=== PATIENT | male | born 1990 | race Caucasian/White ===

== ENCOUNTER 2023-01-03 13:12 | Emergency (ER) | payer SELFPAY ==
[2023-01-03] MEDS ORDERED: LIDOCAINE 1% INJ 20 ML VIAL INJ STA (13:23)
[2023-01-03] MEDS ORDERED: TETANUS,DIPTH,PERTUSS P/F (BOOSTRIX) 0.5 ML VIAL IM ONE (13:30)
[2023-01-03] MEDS ORDERED: cefTRIAXone 1,000 MG VIAL IM STA (13:31)
--- NOTE | 2023-01-03 13:38 | ED Upper Extremity ---
General Chief Complaint: Upper Extremity Stated Complaint: RIGHT HAND INJURY Nursing Triage Note: Patient has presented to ER with laceration to right knuckle from a razor blade. Source: patient History of Present Illness Date Seen by Provider: Jan 03, 2023 Time Seen by Provider: 13:18 Initial Comments 32-year-old male presenting with complaints of laceration to the right hand. He was using a straight razor trying to work with a normal can. The blade slipped and cut into his hand. He believes his last tetanus shot was 5 to 6 years ago. He denies any allergies to medications. He states he does not take any regular medicines every day. He does not have any numbness or tingling and has intact movement. Onset: just prior to arrival Severity: mild Pain/Injury Location: right 3rd finger Method of Injury: incised Modifying Factors: Worse With Movement Allergies and Home Medications Allergies Coded Allergies: No Known Drug Allergies (Unverified , 01/03/23) Patient Home Medication List Home Medication List Reviewed: Yes Amoxicillin/Potassium Clav (Amox Tr-K Clv 875-125 mg Tab) 875 Mg-125 Mg Tablet, 1 EACH PO BID Prescribed by: DENISE DIAS on 01/03/23 1427 Review of Systems Constitutional: No chills, No fever EENTM: no symptoms reported Respiratory: no symptoms reported Cardiovascular: no symptoms reported Gastrointestinal: no symptoms reported Genitourinary: no symptoms reported Musculoskeletal: see HPI Skin: see HPI Psychiatric/Neurological: Denies Numbness, Denies Paresthesia Past Bdrspyq-Ngjsbp-Gailev Hx Patient Social History Tobacco Use?: No Use of E-Cig and/or Vaping dev: No Substance use?: No Pt feels they are or have been: Unable to obtain Physical Exam Vital Signs Vital Signs - First Documented 01/03/23 13:18 Temp 35.7 Pulse 88 Resp 94 B/P (MAP) 143/96 (112) Pulse Ox 95 O2 Delivery Room Air Capillary Refill : Height, Weight, BMI Height: '" Weight: lbs. oz. kg; BMI Method: General Appearance: WD/WN, no apparent distress Cardiovascular: normal peripheral pulses Wrist: Yes normal inspection, Yes non-tender, Yes no evidence of injury, Yes normal ROM Hand: normal ROM, Right, laceration (extensor surface of middle finger over the MCP joint. Tendon visible within wound but no obvious laceration of the tendon. Full ROM of the middle finger of right hand with intact extension even with each joint stabilized.) Neurologic/Tendon: normal sensation, normal motor functions, normal tendon functions Neurologic/Psychiatric: media monitor II-XII nml as tested, no motor/sensory deficits, alert, oriented x 3 Skin: normal color, warm/dry Procedures/Interventions Wound Location: Upper Extremities (Right hand over the extensor surface of the middle finger.) Wound Length (cm): 4.2 Wound's Depth, Shape: linear, sub Q, tendon Wound Explored: clean Irrigated w/ Saline (ccs): 500 Betadine Prep?: Yes Anesthesia: 1% Lidocaine Volume Anesthetic (ccs): 6 Suture: Ethlion Suture Size: 4-0 Number of Sutures: 8 Sterile Dressing Applied?: Yes Progress After obtaining verbal consent from the patient the wound was anesthetized with 1% plain lidocaine. A total of 6 mL of 1% plain lidocaine were infiltrated in the wound. Then using Betadine and sterile water a total of 500 mL were irrigated through the wound under pressure. Using 4-0 Ethilon a total of 8 simple interrupted stitches were placed to approximate the wound edges. Wound edges were well approximated without any acute complication during the procedure. Patient was counseled on follow-up and return precautions. We will give antibiotics here of Rocephin 1 g IM and sent a prescription for continued Augmentin 875 twice daily. Counseled to have stitches removed in 12 to 14 days. Be seen sooner if concerns for infection. Progress/Results/Core Measures Results/Orders My Orders Orders - DENISE DIAS MD Dipht,Pertuss(Acell),Tet Adult (Boostrix (01/03/23 13:30) Lidocaine 1% Inj 20 Ml (Xylocaine 1% Inj (01/03/23 13:23) Ceftriaxone (Rocephin) (01/03/23 13:31) Lidocaine 1% Inj 20 Ml (Xylocaine 1% Inj (01/03/23 13:45) Wound Dressing-Ed (01/03/23 13:31) Suture Set At Bedside (01/03/23 13:31) Medications Given in ED Current Medications Medications Dose Ordered Sig/Coleman Route Start Time Stop Time Status Last Admin Dose Admin Diphtheria/ Tetanus/Acell Pertussis 0.5 ml ONCE ONCE IM 01/03/23 13:30 01/03/23 13:31 DC 01/03/23 13:34 0.5 ML Lidocaine HCl 2.1 ml ONCE ONCE INJ 01/03/23 13:45 01/03/23 13:46 DC 01/03/23 13:47 2.1 ML Vital Signs/I&O 01/03/23 01/03/23 13:18 14:31 Temp 35.7 35.7 Pulse 88 88 Resp 94 94 B/P (MAP) 143/96 (112) 143/96 Pulse Ox 95 95 O2 Delivery Room Air Room Air Blood Pressure Mean: 112 Progress Progress Note : Progress Note Update tetanus booster as patient thought it had been 5 to 6 years since his last shot. X-rays were considered but since he did not have any force to cause a bony abnormality and there were no obvious foreign bodies will defer x-rays for now. I did call and discussed the patient with the on-call orthopedic doctor, Dr. Ronal Ann. He agreed with the antibiotics and covering the tendon but voiced that the patient would not have to follow-up with orthopedics unless he was having complications or concerns. Plan on having the stitches out in 12 to 14 days. Departure Impression Primary Impression: Laceration of middle finger of right hand without complication Qualified Codes: S61.212A - Laceration without foreign body of right middle finger without damage to nail, initial encounter Disposition: 01 HOME, SELF-CARE Condition: Stable Departure-Patient Inst. Decision time for Depature: 14:26 Referrals: NO,LOCAL PHYSICIAN (Family) Primary Care Physician RONAL ANN MD [facility] Patient Instructions: Wound Care ED, Laceration Repair With Stitches ED Add. Discharge Instructions: Keep wound clean and dry for the first 24 hours. After that you may wash with soap and water like normal but did not soak it. Keep a clean dry dressing on the wound whenever it might get dirty. If you are just at home without the chance of it getting dirty you could leave it open to air. Take the full course of antibiotics to help prevent infection. If you do notice increasing redness streaking up your hand increasing pain, pus draining from the wound then you should return or be seen immediately as you would need a surgeon to clean out the wound. You may try using acetaminophen and/or ibuprofen to help with pain. You could apply ice 10 to 15 minutes every few hours as needed to help with pain and swelling. Try to keep it elevated above heart level is much as possible to help with pain and swelling. All discharge instructions reviewed with patient and/or family. Voiced understanding. Scripts Amoxicillin/Potassium Clav (Amox Tr-K Clv 875-125 mg Tab) 875 Mg-125 Mg Tablet 1 EACH PO BID for laceration for 10 Days, #20 TAB 0 Refills Prov: DENISE DIAS MD 01/03/23 Work/School Note: Work Release Form Date Seen in the Emergency Department: Jan 03, 2023 Return to Work: Jan 18, 2023 Restrictions: Need Release from Doctor Other Restrictions Listed Below: Keep wound clean and covered if might get dirty. Restrictions: Stitches out in 12 to 14 days DENISE DIAS MD Jan 03, 2023 13:38
[2023-01-03] MEDS ORDERED: LIDOCAINE 1% INJ 20 ML VIAL INJ ONE (13:45)
[2023-01-03] MEDS ORDERED: AMOX1TAB12 PO (14:27)
[2023-01-03 14:31] VITALS: BP 143/96
== END 2023-01-03 14:31 | disposition home or self-care (01) ==
LOC: ER FS 13:14
DX: S61.212A Laceration without foreign body of right middle finger without damage to nail, initial encounter (principal); Z23 Encounter for immunization; W26.8XXA Contact with other sharp object(s), not elsewhere classified, initial encounter
CPT/HCPCS: 12002; 90715